=== PATIENT | male | born 1985 | race Caucasian/White ===

== ENCOUNTER 2024-03-11 21:25 | Emergency (ER) | payer OTHER, SELFPAY | END 2024-03-12 00:10 | disposition home or self-care (01) | LOC: CSHERS 21:25 | DX: R55 Syncope and collapse (principal); E11.9 Type 2 diabetes mellitus without complications; I10 Essential (primary) hypertension; F17.210 Nicotine dependence, cigarettes, uncomplicated | CPT/HCPCS: 36416; 70450 ==

== ENCOUNTER 2024-03-14 15:10 | Emergency (ER) | payer OTHER ==
[2024-03-14] MEDS ORDERED: Ibuprofen 800 MG TAB ONE (17:06)
== END 2024-03-14 18:19 | disposition home or self-care (01) ==
LOC: CSHERS 15:10
DX: S83.91XA Sprain of unspecified site of right knee, initial encounter (principal); E11.9 Type 2 diabetes mellitus without complications; I10 Essential (primary) hypertension; F17.210 Nicotine dependence, cigarettes, uncomplicated; X58.XXXA Exposure to other specified factors, initial encounter
CPT/HCPCS: 93005; 93010